=== PATIENT | female | born 1990 | race Hispanic/Latino ===

== ENCOUNTER 2021-04-11 13:09 | Day surgery (SDC) | payer OTHER ==
[2021-04-11 13:51] VITALS: BMI 35.6
[2021-04-11] MEDS ORDERED: hydrALAZINE 20 MG/ML VIAL SLOW IVP PRN (14:07)
[2021-04-11 14:53] LABS: #Eosinphils 0.1 10x3/uL (0.0-0.5); #Monocytes 0.6 10x3/uL (0.0-1.1); #Neutrophils 7.4 10x3/uL (1.5-8.4); %Basophils 0.2 % (0.0-2.0); %Eosinophils 0.7 % (0.0-6.0); %Lymphocytes 19.6 % (18.0-47.0); %Monocytes 6.3 % (0.0-10.0); %Neutrophils 72.9 % (40.0-75.0); Hemoglobin 11.2 g/dL (12.0-15.5); Mean Corpuscular HGB CONC 32.7 g/dL (32.0-36.0); Mean Corpuscular Hemoglobin 29.4 pg (27.0-33.0); Mean Corpuscular Volume 89.8 fl (81.6-98.3); Mean Platelet Volume 11.5 fl (7.4-10.4); Platelet Count 343 10x3/uL (150-450); RBC Distribution Width 13.2 % (11.5-14.5); Red Blood Cell (RBC) Count 3.81 10x6/uL (3.90-5.03); White Blood Cell (WBC) Count 10.2 10x3/uL (3.5-10.5)
[2021-04-11] MEDS ORDERED: Acetaminophen 500 MG TAB PO SCH (14:53)
[2021-04-11 15:01] LABS: ALT (SGPT) 14 U/L (8-55); AST (SGOT) 17 U/L (5-34); Albumin 3.4 g/dL (3.5-5.0); Alkaline Phosphatase 157 U/L (40-110); Anion Gap 11 mmol/L (10-20); BUN (Urea Nitrogen) 7 mg/dL (7.0-18.7); Bilirubin, Total 0.4 mg/dL (0.2-1.2); Calc. Creatinine Clearance 213 mL/min (70-130); Calcium 9.1 mg/dL (7.8-10.44); Carbon Dioxide 20 mmol/L (22-29); Chloride 107 mmol/L (98-107); Globulin 3.8 g/dL (2.4-3.5); Glucose 69 mg/dL (70-105); Protein, Total 7.2 g/dL (6.0-8.3); Sodium 134 mmol/L (136-145)
[2021-04-11 15:12] LABS: Creatinine, Urine 34.34 mg/dL (47-110)
== END 2021-04-11 16:31 | disposition home or self-care (01) ==
LOC: CSHLD/OP 13:09
PROVIDERS: ATTEND Family Medicine
DX: O99.891 Other specified diseases and conditions complicating pregnancy (principal); R10.30 Lower abdominal pain, unspecified; M54.9 Dorsalgia, unspecified; R03.0 Elevated blood-pressure reading, without diagnosis of hypertension; O26.853 Spotting complicating pregnancy, third trimester; O12.13 Gestational proteinuria, third trimester; Z3A.38 38 weeks gestation of pregnancy; W00.0XXA Fall on same level due to ice and snow, initial encounter
CPT/HCPCS: 36415; 80053; 82570; 84156; 85025; 99283

== ENCOUNTER 2021-04-16 12:08 | Inpatient (IN) | payer MEDICAID, OTHER ==
[~2021-04-16 12:08] MED LIST: Bupivacaine 0.25% HCL 30 ML VIAL ONE
[2021-04-16] MEDS ORDERED: Ibuprofen 800 MG TAB PO PRN (12:17)
[2021-04-16] MEDS ORDERED: Acetaminophen 500 MG TAB PO PRN (12:17)
[2021-04-16] MEDS ORDERED: hydrALAZINE 20 MG/ML VIAL SLOW IVP PRN ×2 (12:17→20:18)
[2021-04-16] MEDS ORDERED: Lidocaine 1% (PF) 30 ML VIAL SC PRN (12:17)
[2021-04-16] MEDS ORDERED: HYDROcodone/Acetaminophen 5/325 mg Tablet PO PRN (12:17)
[2021-04-16] MEDS ORDERED: Misoprostol 200 MCG TAB PR PRN (12:17)
[2021-04-16] MEDS ORDERED: Butorphanol Tartrate 1 MG/ML VIAL SLOW IVP PRN (12:17)
[2021-04-16] MEDS ORDERED: Carboprost 250 MCG/ML AMP IM PRN (12:17)
[2021-04-16] MEDS ORDERED: Ondansetron PF 4 MG/2 ML Vial IVP PRN ×3 (12:17→20:18)
[2021-04-16] MEDS ORDERED: Methylergonovine 0.2 MG/ML VIAL IM PRN (12:17)
[2021-04-16] MEDS ORDERED: Diphenoxylate HCl/Atropine Tablet PO PRN (12:17)
[2021-04-16] MEDS ORDERED: Promethazine HCl 25 MG/ML VIAL IM PRN ×2 (12:17→20:11)
[2021-04-16] MEDS ORDERED: Penicillin G 2.5 MILL.units 2.5 MILL.UNITS in Premix Bag 1 BAG IVPB SCH ×2 (12:30→16:30)
[2021-04-16] MEDS ORDERED: NS w/ Oxytocin 30 units 500 ML IV SCH ×3 (12:30→20:18)
[2021-04-16] MEDS ORDERED: Penicillin G Potassium 5 MILL.UNITS in Sodium Chloride 0.9% 100 ML IVPB SCH (12:30)
[2021-04-16 12:54] VITALS: BMI 35.9
[2021-04-16] MEDS: Lactated Ringer's 1,000 ML IV SCH ×2 (12:54→17:42)
[2021-04-16 13:12] LABS: Hemoglobin 10.9 g/dL (12.0-15.5); Mean Corpuscular HGB CONC 33.5 g/dL (32.0-36.0); Mean Corpuscular Hemoglobin 29.7 pg (27.0-33.0); Mean Corpuscular Volume 88.6 fl (81.6-98.3); Mean Platelet Volume 11.4 fl (7.4-10.4); Platelet Count 346 10x3/uL (150-450); RBC Distribution Width 13.2 % (11.5-14.5); Red Blood Cell (RBC) Count 3.67 10x6/uL (3.90-5.03); White Blood Cell (WBC) Count 10.9 10x3/uL (3.5-10.5)
[2021-04-16 13:39] LABS: Hep B Surf Ag Non-Reactive S/CO (NonReactive)
[2021-04-16 13:39] LABS: Syphilis Antibody Nonreactive (Nonreactive); Syphilis Antibody Index 0.08 S/CO (<1.00 Non-Reactive)
[2021-04-16 13:42] LABS: HBSAg Index 0.19 S/CO (0-0.99)
[2021-04-16 15:23] LABS: SARS-CoV-2 NAA Rapid Test Not Detected (NotDetected)
[2021-04-16] MEDS ORDERED: Fentanyl 2 mcg/Bup 0.1% Cadd 100 ML ONE (17:07)
[2021-04-16] MEDS ORDERED: cloNIDine 0.1 MG TAB PO PRN (18:36)
[2021-04-16] MEDS ORDERED: Lactated Ringer's 500 ML IV PRN (20:11)
[2021-04-16] MEDS ORDERED: Naloxone HCl 0.4 mg/ml Vial IVP PRN ×2 (20:11)
[2021-04-16] MEDS ORDERED: ePHEDrine Sulfate 50 MG/10 ML VIAL SLOW IVP PRN (20:11)
[2021-04-16] MEDS ORDERED: diphenhydrAMINE 50 MG/ML VIAL IVP PRN (20:11)
[2021-04-16] MEDS ORDERED: Hydrocerin (Eucerin) Cream 120 gm Jar TOP PRN (20:11)
[2021-04-16] MEDS ORDERED: Acetaminophen 325 MG TAB PO PRN (20:11)
[2021-04-16] MEDS ORDERED: Fentanyl 2 mcg/Bupivacaine 0.1% Cassette 100 ML EPIDURAL SCH (20:15)
[2021-04-16] MEDS ORDERED: Communication Order-Pharmacy FS SCH (20:15)
[2021-04-16] MEDS ORDERED: Lanolin Ointment 7 GM TUBE TOP PRN (20:18)
[2021-04-16] MEDS ORDERED: Boostrix 0.5 ML (Tdap) VIAL IM ONE (20:18)
[2021-04-16] MEDS ORDERED: Benzocaine-Menthol 82.5 ML CAN TOP PRN (20:18)
[2021-04-16] MEDS ORDERED: Milk Of Magnesia 30 ML UDCUP PO PRN (20:18)
[2021-04-16] MEDS ORDERED: Bisacodyl 10 MG SUPP PR PRN (20:18)
[2021-04-16] MEDS: Ibuprofen 800 MG TAB PO SCH (21:58)
[2021-04-16] MEDS: Docusate 100 MG CAP PO SCH (21:58)
[2021-04-17] MEDS: HYDROcodone/Acetaminophen 5/325 mg Tablet PO PRN ×3 (00:40→13:23)
[2021-04-17] MEDS: Ibuprofen 800 MG TAB PO SCH ×2 (04:57→13:22)
[2021-04-17] MEDS: Docusate 100 MG CAP PO SCH (09:00)
[2021-04-17] MEDS ORDERED: Prenatal Vitamin 1 TAB PO SCH (09:00)
[2021-04-17] MEDS: Ferrous Sulfate 325 MG TAB PO SCH ×2 (09:00→14:16)
[2021-04-17 21:23] VITALS: BP 125/68; TEMP 97.8
== END 2021-04-17 20:15 | disposition home or self-care (01) | DRG 807 ==
LOC: CSHLD 12:08 → CSHPP 20:30
PROVIDERS: ADMIT Family Medicine; ATTEND Family Medicine
PROC: 10E0XZZ Delivery of Products of Conception, External Approach (ICD-10-PCS; principal; 2021-04-16)
DX: O42.02 Full-term premature rupture of membranes, onset of labor within 24 hours of rupture (principal); Z37.0 Single live birth; O99.824 Streptococcus B carrier state complicating childbirth; Z20.822 Contact with and (suspected) exposure to COVID-19; Z3A.39 39 weeks gestation of pregnancy
CPT/HCPCS: 36415; 51701; 85027; 86780; 86850; 86900; 86901; 87340; J2540; J2590; J3490; J7120; S0020; U0002

== ENCOUNTER 2021-04-19 13:18 | Observation (INO) | payer MEDICAID, OTHER ==
[2021-04-19 14:07] LABS: #Monocytes 0.3 10x3/uL (0.0-1.1); #Neutrophils 9.3 10x3/uL (1.5-8.4); %Basophils 0.1 % (0.0-2.0); %Lymphocytes 6.9 % (18.0-47.0); %Monocytes 2.6 % (0.0-10.0); %Neutrophils 88.4 % (40.0-75.0); Hemoglobin 10.4 g/dL (12.0-15.5); Mean Corpuscular HGB CONC 32.7 g/dL (32.0-36.0); Mean Corpuscular Hemoglobin 29.4 pg (27.0-33.0); Mean Corpuscular Volume 89.8 fl (81.6-98.3); Mean Platelet Volume 11.1 fl (7.4-10.4); Platelet Count 308 10x3/uL (150-450); RBC Distribution Width 13.3 % (11.5-14.5); Red Blood Cell (RBC) Count 3.54 10x6/uL (3.90-5.03); White Blood Cell (WBC) Count 10.6 10x3/uL (3.5-10.5)
[2021-04-19] MEDS ORDERED: Ketorolac Tromethamine 30 MG/ML VIAL ONE (14:09)
[2021-04-19] MEDS ORDERED: Ondansetron PF 4 MG/2 ML Vial ONE (14:09)
[2021-04-19] MEDS ORDERED: cefTRIAXone\\ROCEPHIN 2 GM VIAL ONE (14:10)
[2021-04-19 14:20] LABS: Bilirubin Neg (Negative); Blood, Urine Negative (Negative); Clarity Clear (Clear); Glucose, Urine (Dipstick) Normal (Negative); Ketone, Urine Negative (Negative); Leukocyte Negative (Negative); Nitrite Negative (Negative); Protein, Urine (Dipstick) 15 mg/dl (Neg-Trace); Specific Gravity, Urine 1.015 (1.002-1.036)
[2021-04-19 14:22] LABS: ALT (SGPT) 50 U/L (8-55); AST (SGOT) 48 U/L (5-34); Albumin 3.4 g/dL (3.5-5.0); Alkaline Phosphatase 138 U/L (40-110); Anion Gap 15 mmol/L (10-20); BUN (Urea Nitrogen) 9 mg/dL (7.0-18.7); Bilirubin, Total 0.5 mg/dL (0.2-1.2); Calc. Creatinine Clearance 0 mL/min (70-130); Calcium 8.5 mg/dL (7.8-10.44); Carbon Dioxide 22 mmol/L (22-29); Chloride 105 mmol/L (98-107); Globulin 3.2 g/dL (2.4-3.5); Glucose 79 mg/dL (70-105); Lipase 7 U/L (8-78); Magnesium 1.9 mg/dL (1.6-2.6); Protein, Total 6.6 g/dL (6.0-8.3); Sodium 138 mmol/L (136-145)
[2021-04-19 15:21] LABS: SARS-CoV-2 NAA Rapid Test Not Detected (NotDetected)
[2021-04-19] MEDS ORDERED: Piperacillin/Tazobactam 3.375 GM VIAL ONE (18:09)
[2021-04-19] MEDS ORDERED: HYDROcodone/Acetaminophen 5/325 mg Tablet PO PRN ×2 (20:15)
[2021-04-19] MEDS ORDERED: diphenhydrAMINE 25 MG CAP PO PRN (20:15)
[2021-04-19] MEDS ORDERED: Simethicone Chewable 80 MG TAB PO PRN (20:15)
[2021-04-19] MEDS ORDERED: hydrALAZINE 20 MG/ML VIAL SLOW IVP PRN (20:15)
[2021-04-19] MEDS ORDERED: Ondansetron PF 4 MG/2 ML Vial IVP PRN (20:15)
[2021-04-19] MEDS ORDERED: Lanolin Ointment 7 GM TUBE TOP PRN (20:15)
[2021-04-19] MEDS ORDERED: Acetaminophen 500 MG TAB PO PRN (20:33)
[2021-04-19] MEDS: Clindamycin/D5W 900 MG in Premix Bag 1 BAG IVPB SCH (20:52)
[2021-04-19] MEDS: Ibuprofen 800 MG TAB PO SCH (21:02)
[2021-04-19] MEDS ORDERED: Clindamycin/D5W 900 MG in Premix Bag 1 BAG IVPB SCH (22:00)
[2021-04-20 00:18] VITALS: BMI 33.2
[2021-04-20] MEDS: Piperacillin/Tazobactam 3.375 GM in Sodium Chloride 0.9% 100 ML IVPB SCH ×3 (03:00→18:03)
[2021-04-20 05:31] LABS: Hemoglobin 9.9 g/dL (12.0-15.5); Mean Corpuscular HGB CONC 32.6 g/dL (32.0-36.0); Mean Corpuscular Hemoglobin 29.7 pg (27.0-33.0); Mean Corpuscular Volume 91.3 fl (81.6-98.3); Mean Platelet Volume 10.9 fl (7.4-10.4); Platelet Count 291 10x3/uL (150-450); RBC Distribution Width 13.7 % (11.5-14.5); Red Blood Cell (RBC) Count 3.33 10x6/uL (3.90-5.03); White Blood Cell (WBC) Count 7.9 10x3/uL (3.5-10.5)
[2021-04-20] MEDS: Clindamycin/D5W 900 MG in Premix Bag 1 BAG IVPB SCH ×3 (06:00→22:11)
[2021-04-20] MEDS: Ibuprofen 800 MG TAB PO SCH ×3 (06:01→22:11)
[2021-04-20] MEDS ORDERED: Piperacillin/Tazobactam 3.375 GM VIAL ONE (10:07)
[2021-04-21] MEDS: Piperacillin/Tazobactam 3.375 GM in Sodium Chloride 0.9% 100 ML IVPB SCH (02:54)
[2021-04-21] MEDS: Clindamycin/D5W 900 MG in Premix Bag 1 BAG IVPB SCH (05:05)
[2021-04-21] MEDS: Ibuprofen 800 MG TAB PO SCH (05:06)
[2021-04-21 07:55] VITALS: BP 138/72; TEMP 98.3
== END 2021-04-21 10:40 | disposition home or self-care (01) ==
LOC: CSHERS 13:18 → CSHPP 18:30
PROVIDERS: ADMIT Obstetrics & Gynecology; ATTEND Obstetrics & Gynecology
DX: O99.893 Other specified diseases and conditions complicating puerperium (principal); R50.9 Fever, unspecified; R53.1 Weakness; M79.10 Myalgia, unspecified site; R20.2 Paresthesia of skin; D18.09 Hemangioma of other sites; Z20.822 Contact with and (suspected) exposure to COVID-19
CPT/HCPCS: 0240U; 51701; 71045; 72157; 72158; 80053; 81003; 83605; 83690; 83735; 84145; 85025; 85027; 85652; 86140; 87040; 87086; 96365; 96366; 96367; 96375; G0378; J0696; J1885; J2405; J2543; J3490